=== PATIENT | female | born 2000 | race Caucasian/White ===

== ENCOUNTER 2023-10-09 11:22 | Inpatient (IN) | payer MEDICAID ==
[~2023-10-09] VITALS: Ht 149.9 cm; Wt 58.1 kg
[2023-10-09 11:30] VITALS: BP_SYST 93; PULSE 109; RESP 20; TEMP 97.2; O2SAT 100
[2023-10-09 13:34] LABS: BASOPHILS % (AUTO) 0.1 % (0.0-2.0); HEMATOCRIT 35.4 % (36-48); HEMOGLOBIN 12.1 g/dL (12.0-16.0); LYMPHOCYTES # (AUTO) 0.7 K/uL (1.0-5.5); LYMPHOCYTES % (AUTO) 3.9 % (20.5-51.5); MEAN CORPUSCULAR HEMOGLOBIN 30 pg (27-31); MEAN CORPUSCULAR HGB CONC 34 % (32-36); MEAN CORPUSCULAR VOLUME 87 fL (79.0-98.0); MONOCYTES # (AUTO) 0.9 K/uL (0.0-1.0); MONOCYTES % (AUTO) 4.8 % (1.7-9.3); NEUTROPHILS # (AUTO) 17.4 K/uL (1.8-7.7); NEUTROPHILS % (AUTO) 91.2 % (40.0-70.0); PLATELET COUNT (AUTO) 128 K/uL (130-430); RED BLOOD CELL COUNT(AUTO) 4.06 MIL/uL (4.2-6.2); RED CELL DISTRIBUTION WIDTH 15.1 % (9.0-15.0); WHITE BLOOD COUNT (AUTO) 19.1 K/uL (4.8-10.8)
[2023-10-09 13:40] LABS: ACETONE, SERUM POSITIVE (NEGATIVE); SERUM HCG (QUALITATIVE) NEGATIVE (NEGATIVE)
[2023-10-09 13:43] LABS: ANION GAP 15 (5-15); CALCIUM 8.6 mg/dL (8.4-11.0); CARBON DIOXIDE 22 mmol/L (23-29); CHLORIDE 87 mmol/L (98-107); CREATININE 1.22 mg/dL (0.55-1.30); GFR AFRICAN AMERICAN 69 mL/min (>90); GLUCOSE 304 mg/dL (74-106); POTASSIUM 3.5 mmol/L (3.5-5.1); SODIUM SERUM 124 mmol/L (136-145); UREA NITROGEN, BLOOD 15 mg/dL (8-21)
[2023-10-09] MEDS: METOCLOPRAMIDE HCL 10 MG/2 ML VIAL IVP ONE (13:46)
[2023-10-09] MEDS: NACL 0.9% 1,000 ML IV ONE (13:46)
[2023-10-09 13:47] LABS: ALANINE AMINOTRANSFERASE 18 U/L (12-78); ALBUMIN 2.7 g/dL (3.4-4.8); ASPARTATE AMINOTRANSFERASE 10 U/L (10-37); BILIRUBIN,DIRECT 0.2 mg/dL (0.0-0.3); LIPASE 10 U/L (16-77); TOTAL BILIRUBIN 0.5 mg/dL (0.0-1.0); TOTAL PROTEIN, SERUM 7.1 g/dL (6.4-8.3)
[2023-10-09 13:53] LABS: ALCOHOL, BLOOD < 3 mg/dL (<10); GFR NON AFRICAN-AMERICAN 57 mL/min (>90)
[2023-10-09 14:57] LABS: BILIRUBIN,URINE NEGATIVE (NEGATIVE); BLOOD, URINE 2+ (NEGATIVE); CLARITY/URINE CLEAR (CLEAR); COLOR,URINE YELLOW (YELLOW); GLUCOSE,URINE 3+ (NEGATIVE); KETONES,URINE 3+ (NEGATIVE); LEUKOCYTE ESTERASE ,URINE NEGATIVE (NEGATIVE); NITRITE, URINE NEGATIVE (NEGATIVE); PROTEIN URINE 1+ (NEGATIVE); UROBILINOGEN,URINE 0.2 (0.2-1.0)
[2023-10-09 15:06] LABS: BACTERIA,URINE RARE /HPF (None Seen); FINE GRANULAR CASTS,URINE 0-2 /LPF (None Seen)
[2023-10-09 15:09] LABS: BARBITURATE, URINE NEGATIVE (NEG <=200); BENZODIAZEPINE, URINE NEGATIVE (NEG <=150); CANNABINOID, URINE POSITIVE (NEG <=50); COCAINE, URINE NEGATIVE (NEG <=150); METHAMPHETAMINES SCREEN,URINE NEGATIVE (NEG <=500); OPIATE, URINE NEGATIVE (NEG <=100); PHENCYCLIDINE SCREEN,URINE NEGATIVE (NEG <=25); UR TRICYCLIC ANTIDEPRESSANTS NEGATIVE (NEG <=300); URINE AMPHETAMINE NEGATIVE (NEG <=500); URINE METHADONE NEGATIVE (NEG <=200); URINE OXYCODONE SCREEN NEGATIVE (NEG <=100)
[2023-10-09] MEDS: NACL 0.9% 1,000 ML IV SCH (15:30)
[2023-10-09] MEDS ORDERED: D5W 1,000 ML IV PRN (15:30)
[2023-10-09] MEDS ORDERED: DEXTROSE 50% JECT 50 ML DISP.SYRIN IVP PRN (15:30)
[2023-10-09] MEDS ORDERED: GLUCOSE (DEXTROSE) ORAL GEL -Adults PO PRN (15:30)
[2023-10-09] MEDS: INSULIN REGULAR, HUMAN 10 UNITS/0.1 ML, 3 ML VIAL IVP ONE (16:45)
[2023-10-09] MEDS ORDERED: ACETAMINOPHEN 325 MG TABLET PO PRN (17:30)
[2023-10-09] MEDS ORDERED: LORazepam 2 MG/ML VIAL IVP PRN (22:15)
[2023-10-09] MEDS: ONDANSETRON HCL 4 MG/2 ML VIAL IVP PRN (22:21)
[2023-10-09] MEDS: INSULIN REGULAR, HUMAN 100 UNITS/ML, 3 ML VIAL (humuLIN R) SUBCUT PRN (23:57)
[2023-10-10] MEDS: HALOPERIDOL LACTATE 5 MG/ML VIAL IVP ONE (00:03)
[2023-10-10] MEDS: INSULIN GLARGINE 100 UNITS/ML, 10 ML VIAL SUBCUT ONE (00:05)
[2023-10-10 06:03] LABS: BASOPHILS % (AUTO) 0.1 % (0.0-2.0); EOSINOPHILS # (AUTO) 0.1 K/uL (0.0-0.4); EOSINOPHILS % (AUTO) 0.6 % (0.0-4.0); HEMATOCRIT 32.5 % (36-48); HEMOGLOBIN 10.7 g/dL (12.0-16.0); LYMPHOCYTES # (AUTO) 0.9 K/uL (1.0-5.5); LYMPHOCYTES % (AUTO) 5.7 % (20.5-51.5); MEAN CORPUSCULAR HEMOGLOBIN 29 pg (27-31); MEAN CORPUSCULAR HGB CONC 33 % (32-36); MEAN CORPUSCULAR VOLUME 87 fL (79.0-98.0); MONOCYTES # (AUTO) 1.5 K/uL (0.0-1.0); MONOCYTES % (AUTO) 9.1 % (1.7-9.3); NEUTROPHILS # (AUTO) 13.8 K/uL (1.8-7.7); NEUTROPHILS % (AUTO) 84.5 % (40.0-70.0); PLATELET COUNT (AUTO) 110 K/uL (130-430); RED BLOOD CELL COUNT(AUTO) 3.73 MIL/uL (4.2-6.2); RED CELL DISTRIBUTION WIDTH 15.3 % (9.0-15.0); WHITE BLOOD COUNT (AUTO) 16.3 K/uL (4.8-10.8)
[2023-10-10] MEDS ORDERED: INSULIN REGULAR, HUMAN 10 UNITS/0.1 ML, 3 ML VIAL ONE (06:11)
[2023-10-10 06:20] LABS: ALBUMIN 2.3 g/dL (3.4-4.8); CALCIUM 8.1 mg/dL (8.4-11.0); CREATININE 0.96 mg/dL (0.55-1.30); PHOSPHORUS 2.2 mg/dL (2.7-4.5); POTASSIUM 3.4 mmol/L (3.5-5.1); TOTAL BILIRUBIN 0.4 mg/dL (0.0-1.0); TOTAL PROTEIN, SERUM 6.3 g/dL (6.4-8.3)
[2023-10-10] MEDS ORDERED: ONDANSETRON HCL 4 MG/2 ML VIAL ONE (06:47)
[2023-10-10] MEDS ORDERED: D5/0.45 NS 1,000 ML IV SCH (07:00)
[2023-10-10] MEDS: INSULIN GLARGINE 100 UNITS/ML, 10 ML VIAL SUBCUT SCH ×2 (10:22→21:20)
[2023-10-10] MEDS ORDERED: INSULIN GLARGINE 100 UNITS/ML, 10 ML VIAL ONE (10:23)
[2023-10-10] MEDS: POTASSIUM CHLORIDE 20 MEQ TABLET.ER PO ONE (11:59)
[2023-10-10] MEDS: INSULIN Lispro 100 UNITS/ML, 3 ML VIAL (humaLOG) SUBCUT SCH (12:02)
[2023-10-10] MEDS: INSULIN LISPRO SLIDING SCALE 100 UNITS/ML, 3 ML VIAL (humaLOG) SUBCUT PRN (12:03)
[2023-10-10 12:07] VITALS: BP_SYST 129; PULSE 77; RESP 18; TEMP 98.7; O2SAT 99
[2023-10-10] MEDS: cefTRIAXone 1 GM in D5W 50 ML IV SCH (12:53)
[2023-10-10] MEDS: NA PHOS 15 MM in NS 250 ML IV ONE (12:54)
[2023-10-10 15:07] LABS: CALCIUM 7.6 mg/dL (8.4-11.0); CREATININE 0.99 mg/dL (0.55-1.30); POTASSIUM 3.3 mmol/L (3.5-5.1)
[2023-10-10] MEDS: METOCLOPRAMIDE HCL 10 MG/2 ML VIAL IVP PRN (17:25)
[2023-10-10 17:33] VITALS: BP_SYST 116; PULSE 78; RESP 16; TEMP 99.6; O2SAT 99
[2023-10-10 19:00] VITALS: BP_SYST 126; BP_SYST 128; PULSE 86; RESP 18; RESP 20; TEMP 97.7; O2SAT 99
[2023-10-10 19:48] VITALS: BP_SYST 126; PULSE 86; RESP 20; TEMP 97.7; O2SAT 99
[2023-10-10 20:00] VITALS: BP_SYST 128; PULSE 86; RESP 18; TEMP 97.7; O2SAT 99
[2023-10-10 20:04] VITALS: BP_SYST 126; PULSE 86; RESP 20; TEMP 97.7
[2023-10-10] MEDS ORDERED: INSULIN GLARGINE 100 UNITS/ML, 10 ML VIAL SUBCUT SCH (21:00)
[2023-10-10] MEDS: metroNIDAZOLE 500 mg/NS 100 ML IV SCH (21:22)
[2023-10-11] VITALS: BP_SYST 102; PULSE 90; RESP 16; TEMP 97.3; O2SAT 100
[2023-10-11 04:00] VITALS: BP_SYST 100; PULSE 83; RESP 20; TEMP 97.5; O2SAT 99
[2023-10-11 06:10] LABS: CALCIUM 8.3 mg/dL (8.4-11.0); CREATININE 0.82 mg/dL (0.55-1.30); POTASSIUM 3.3 mmol/L (3.5-5.1)
[2023-10-11 06:23] LABS: BASOPHILS % (AUTO) 0.1 % (0.0-2.0); EOSINOPHILS # (AUTO) 0.1 K/uL (0.0-0.4); EOSINOPHILS % (AUTO) 0.5 % (0.0-4.0); HEMATOCRIT 31.3 % (36-48); HEMOGLOBIN 10.5 g/dL (12.0-16.0); LYMPHOCYTES # (AUTO) 0.9 K/uL (1.0-5.5); LYMPHOCYTES % (AUTO) 6.7 % (20.5-51.5); MEAN CORPUSCULAR HEMOGLOBIN 29 pg (27-31); MEAN CORPUSCULAR HGB CONC 33 % (32-36); MEAN CORPUSCULAR VOLUME 87 fL (79.0-98.0); MONOCYTES # (AUTO) 1.5 K/uL (0.0-1.0); MONOCYTES % (AUTO) 11.5 % (1.7-9.3); NEUTROPHILS # (AUTO) 10.5 K/uL (1.8-7.7); NEUTROPHILS % (AUTO) 81.2 % (40.0-70.0); PLATELET COUNT (AUTO) 128 K/uL (130-430); RED BLOOD CELL COUNT(AUTO) 3.59 MIL/uL (4.2-6.2); RED CELL DISTRIBUTION WIDTH 15.4 % (9.0-15.0)
[2023-10-11 06:45] LABS: HEMOGLOBIN A1C 9.54 % (<5.7)
[2023-10-11 07:00] LABS: ERYTHROCYTE SEDIMENTATION RATE 82 MM/HR (0-20)
[2023-10-11 08:18] VITALS: BP_SYST 102; PULSE 77; RESP 16; TEMP 97.6; O2SAT 99
[2023-10-11] MEDS: INSULIN GLARGINE 100 UNITS/ML, 10 ML VIAL SUBCUT SCH ×2 (08:40→21:43)
[2023-10-11] MEDS: POTASSIUM CHLORIDE 20 MEQ/PKT PACKET PO ONE (08:58)
[2023-10-11] MEDS ORDERED: INSULIN GLARGINE 100 UNITS/ML, 10 ML VIAL SUBCUT SCH (09:00)
[2023-10-11] MEDS: INSULIN Lispro 100 UNITS/ML, 3 ML VIAL (humaLOG) SUBCUT SCH (11:33)
[2023-10-11] MEDS: CHOLECALCIFEROL (VITAMIN D3) 2,000 UNIT TABLET PO ONE (11:35)
[2023-10-11 19:00] VITALS: BP_SYST 108; PULSE 86; RESP 18; TEMP 97.7; O2SAT 99
[2023-10-11 20:00] VITALS: BP_SYST 110; PULSE 85; RESP 20; TEMP 97.5; O2SAT 99
[2023-10-12] VITALS (7 sets, daily range): BP systolic 108–127; PULSE 72–86; RESP 18–20; TEMP 97–98.6; O2SAT 98–100
[2023-10-12 07:08] LABS: ERYTHROCYTE SEDIMENTATION RATE 45 MM/HR (0-20)
[2023-10-12 07:13] LABS: BASOPHILS % (AUTO) 0.3 % (0.0-2.0); EOSINOPHILS % (AUTO) 0.4 % (0.0-4.0); HEMATOCRIT 33.9 % (36-48); HEMOGLOBIN 11.3 g/dL (12.0-16.0); LYMPHOCYTES # (AUTO) 1.3 K/uL (1.0-5.5); LYMPHOCYTES % (AUTO) 11.1 % (20.5-51.5); MEAN CORPUSCULAR HEMOGLOBIN 29 pg (27-31); MEAN CORPUSCULAR HGB CONC 33 % (32-36); MEAN CORPUSCULAR VOLUME 87 fL (79.0-98.0); MONOCYTES # (AUTO) 1.5 K/uL (0.0-1.0); MONOCYTES % (AUTO) 13.1 % (1.7-9.3); NEUTROPHILS # (AUTO) 8.5 K/uL (1.8-7.7); NEUTROPHILS % (AUTO) 75.1 % (40.0-70.0); PLATELET COUNT (AUTO) 184 K/uL (130-430); RED BLOOD CELL COUNT(AUTO) 3.89 MIL/uL (4.2-6.2); RED CELL DISTRIBUTION WIDTH 15.1 % (9.0-15.0); WHITE BLOOD COUNT (AUTO) 11.3 K/uL (4.8-10.8)
[2023-10-12 07:17] LABS: CREATININE 0.58 mg/dL (0.55-1.30)
[2023-10-12 07:20] LABS: POTASSIUM 2.9 mmol/L (3.5-5.1)
[2023-10-12] MEDS: INSULIN GLARGINE 100 UNITS/ML, 10 ML VIAL SUBCUT SCH (10:09)
[2023-10-12] MEDS: POTASSIUM CHLORIDE 20 MEQ TABLET.ER PO ONE (10:12)
[2023-10-12] MEDS: CHOLECALCIFEROL (VITAMIN D3) 2,000 UNIT TABLET PO SCH (10:12)
[2023-10-13] VITALS: BP_SYST 126; PULSE 83; RESP 18; TEMP 97.7; O2SAT 99
[2023-10-13] MEDS: POTASSIUM CHLORIDE 20 MEQ TABLET.ER PO ONE ×2 (01:56→10:36)
[2023-10-13 04:00] VITALS: BP_SYST 118; PULSE 78; RESP 18; TEMP 97.5; O2SAT 99
[2023-10-13 06:00] LABS: ERYTHROCYTE SEDIMENTATION RATE 50 MM/HR (0-20)
[2023-10-13 06:16] LABS: BASOPHILS % (AUTO) 0.4 % (0.0-2.0); EOSINOPHILS # (AUTO) 0.1 K/uL (0.0-0.4); EOSINOPHILS % (AUTO) 0.9 % (0.0-4.0); HEMATOCRIT 33.2 % (36-48); HEMOGLOBIN 11.4 g/dL (12.0-16.0); LYMPHOCYTES # (AUTO) 1.7 K/uL (1.0-5.5); MEAN CORPUSCULAR HEMOGLOBIN 30 pg (27-31); MEAN CORPUSCULAR HGB CONC 34 % (32-36); MEAN CORPUSCULAR VOLUME 86 fL (79.0-98.0); MONOCYTES # (AUTO) 1.5 K/uL (0.0-1.0); MONOCYTES % (AUTO) 14.6 % (1.7-9.3); NEUTROPHILS # (AUTO) 6.8 K/uL (1.8-7.7); NEUTROPHILS % (AUTO) 67.1 % (40.0-70.0); PLATELET COUNT (AUTO) 245 K/uL (130-430); RED BLOOD CELL COUNT(AUTO) 3.84 MIL/uL (4.2-6.2); RED CELL DISTRIBUTION WIDTH 15.4 % (9.0-15.0); WHITE BLOOD COUNT (AUTO) 10.2 K/uL (4.8-10.8)
[2023-10-13 06:48] LABS: ALBUMIN 2.6 g/dL (3.4-4.8); CALCIUM 8.5 mg/dL (8.4-11.0); CREATININE 0.55 mg/dL (0.55-1.30); POTASSIUM 3.3 mmol/L (3.5-5.1); TOTAL BILIRUBIN 0.5 mg/dL (0.0-1.0); TOTAL PROTEIN, SERUM 6.8 g/dL (6.4-8.3)
[2023-10-13 08:04] VITALS: BP_SYST 111; PULSE 69; RESP 18; TEMP 98.2; O2SAT 100
[2023-10-13 09:31] VITALS: O2SAT 100
[2023-10-13] MEDS ORDERED: METO-290 PO (10:37)
[2023-10-13] MEDS ORDERED: INSU100V9 SUBCUT (10:37)
[2023-10-13] MEDS ORDERED: INSU100V SUBCUT (10:37)
[2023-10-13] MEDS ORDERED: SULF1TAB48 PO (10:37)
[2023-10-13] MEDS ORDERED: VITD2000 PO (10:37)
[2023-10-13 11:16] VITALS: BP_SYST 110; PULSE 66; RESP 18; TEMP 97.7; O2SAT 100
[2023-10-14] MEDS ORDERED: INSULIN GLARGINE 100 UNITS/ML, 10 ML VIAL SUBCUT SCH (09:00)
== END 2023-10-13 11:55 | disposition home or self-care (01) | DRG 720 ==
LOC: SED 11:22 → SMU 15:20
PROVIDERS: ADMIT Preventive Medicine Preventive Medicine/Occupational Environmental Medicine; ATTEND Preventive Medicine Preventive Medicine/Occupational Environmental Medicine
DX: A41.9 Sepsis, unspecified organism (principal); E43 Unspecified severe protein-calorie malnutrition; D69.6 Thrombocytopenia, unspecified; E10.43 Type 1 diabetes mellitus with diabetic autonomic (poly)neuropathy; E83.51 Hypocalcemia; E87.1 Hypo-osmolality and hyponatremia; K31.84 Gastroparesis; R16.0 Hepatomegaly, not elsewhere classified; E10.65 Type 1 diabetes mellitus with hyperglycemia; D64.9 Anemia, unspecified; K52.9 Noninfective gastroenteritis and colitis, unspecified; N10 Acute pyelonephritis; E87.6 Hypokalemia; N30.00 Acute cystitis without hematuria; F12.10 Cannabis abuse, uncomplicated; Z68.25 Body mass index [BMI] 25.0-25.9, adult
CPT/HCPCS: 36415; 76376; 80048; 80053; 80076; 80307; 81000; 81001; 81015; 82009; 82948; 83037; 83690; 83735; 84100; 84703; 85025; 85651; 87040; 99285; G0482; J0696; J1630; J1815; J2405; J2765; J3490; J7050; J7060